=== PATIENT | female | born 1935 | race Caucasian/White ===

== ENCOUNTER → 2016-03-28 | Outpatient (CLI) | payer OTHER ==
--- NOTE | 2016-03-28 18:12 | DX ---
DEXA Bone Mineral Densitometry Clinical Indications: Postmenopausal, post hysterectomy, loss of height, history of steroid use for 2 years, osteoporosis medication , follow-up osteoporosis Comparison: December 12, 2013 Technique: Bone Mineral Densitometry (BMD) by Dual Energy X-Ray Absorptiometry (DEXA) was performed utilizing the Sassor scanner. The lumbar spine was evaluated in the AP projection. The bilat eral hips and forearm were evaluated in the AP projection. Vertebral fracture assessment was also pe rformed. AP Lumbar Spine: The L1, L2, L3 and L4 vertebral bodies were evaluated. BMD: 0.906 gm/cm2 T-score: -2.3 SD Z-score: -0.2 SD Significantly increased by 8.9% AP Left Hip: Neck BMD: 0.794 gm/cm2 T-score: -1.8 SD Z-score: 0.6 SD No significant change in total BMD AP Right Hip: Neck BMD: 0.796 gm/cm2 T-score: -1.7 SD Z-score: 0.6 SD Total BMD is significantly increased by 5.8% AP Left Forearm, 03/07: BMD: 0.593 gm/cm2 T-score: -3.2 SD Z-score: -0.6 SD Significantly increased by 8.6% Vertebral Fracture Assessment: No significant fracture deformity. Atherosclerotic calcification of t he abdominal aorta likely increases lumbar BMD. Conclusion: Considering the lowest measured site, the patient remains osteoporotic and at increased risk for fracture. Since the forearm is the lowest measured site, it would be worthwhile to exclude h yperparathyroidism. Therapeutic intervention should be continued as clinically directed.. The ten year FRAX risk for any major osteoporotic fracture , which excludes the risk for a wrist frac ture, is 13.6% and for a hip fracture is 3.7%. To promote the patient's bone density, the following recommendations should be considered: 1. Pursue a regular regimen of weightbearing and muscle strengthening exercises in order to reduce t he risk of falls and fractures (as tolerated by the patient's general medical condition). 2. Ensure that daily dietary calcium uptake is maximized. 3. Consider checking the serum vitamin D level. Ensure that intake of vitamin D is 800 IU per day (f or ages 71 and older). 4. Consider follow-up DEXA scan in two years to assess the rate of bone loss in this patient.
== END ==
LOC: FIMAGING 10:15
PROVIDERS: ATTEND Internal Medicine
DX: M81.0 Age-related osteoporosis without current pathological fracture (principal); Z92.241 Personal history of systemic steroid therapy

== ENCOUNTER → 2016-05-16 | Outpatient (CLI) | payer OTHER | LOC: FIMAGING 10:11 | PROVIDERS: ATTEND Internal Medicine | DX: M47.892 Other spondylosis, cervical region (principal); M43.12 Spondylolisthesis, cervical region; M25.78 Osteophyte, vertebrae ==

== ENCOUNTER 2016-06-13 09:32 | Day surgery (SDC) | payer OTHER ==
[2016-06-13] MEDS ORDERED: LR 1,000 ML IV ONE ×2 (09:44→10:37)
[2016-06-13] MEDS ORDERED: PROPOFOL/EMULSION 500 MG/50 ML BOTTLE IV ONE (11:05)
--- NOTE | 2016-06-13 11:53 | GPN ---
[f rep st] PROCEDURE NOTE PREPROCEDURE DIAGNOSIS: Dysphagia. POSTPROCEDURE DIAGNOSIS: Mild stomach gastritis. PROCEDURE: Esophagogastroduodenoscopy with biopsies. ANESTHESIA: Monitored anesthesia care. INDICATIONS: The patient is a 80-year-old female with a history of stroke, on Eliquis, which was stopped 2 days ago, here for dysphagia. She has trouble initiating the swallow with liquids and solids and often feels like food and liquid goes down the wrong tube, causing coughing and choking. Her symptoms are worse after her stroke. She is here for upper endoscopy. The risks and the benefits of the procedure were discussed with the patient. Consent obtained. Risks include, but not limited to, bleeding, perforation, associated with sedation. The patient is ASA class 3. DESCRIPTION OF PROCEDURE: The end-viewing endoscope was inserted into the esophagus, into the stomach, and the second portion of duodenum. The esophagus is normal. There were no strictures. The GE junction is normal and located at 42 cm from the incisors. There was no evidence of Glez's esophagitis or varices. The stomach shows mild antral gastritis seen, erythema along the greater curvature. Biopsies were taken to evaluate for Helicobacter pylori. The duodenum and second portion were normal. Biopsies were taken of the stomach using cold biopsy forceps. IMPRESSION: 1. Normal esophagus. Normal exam for dysphagia. 2. Mild gastritis status post biopsies using cold biopsy forceps. RECOMMENDATIONS: 1. Discharged home with escort. 2. Advance diet as tolerated. 3. Follow up final pathology results, should be available within 10 days. 4. Consider speech therapy consultation and video fluoroscopic swallow study given her history of stroke and likely oropharyngeal dysphagia in the setting of normal endoscopy. Thank you for allowing me to participate in the care of your patient, please do not hesitate to call with questions. /[id number]/MODL MTDD
== END 2016-06-13 12:42 | disposition home or self-care (01) ==
LOC: FSGY 12:42
PROVIDERS: ATTEND Internal Medicine Gastroenterology
PROC: 0DB68ZX Excision of Stomach, Via Natural or Artificial Opening Endoscopic, Diagnostic (ICD-10-PCS; principal; 2016-06-13 11:00)
DX: R13.10 Dysphagia, unspecified (principal); K29.50 Unspecified chronic gastritis without bleeding; G47.33 Obstructive sleep apnea (adult) (pediatric); I69.351 Hemiplegia and hemiparesis following cerebral infarction affecting right dominant side; J44.9 Chronic obstructive pulmonary disease, unspecified
CPT/HCPCS: J2704

== ENCOUNTER → 2017-01-09 | Outpatient (CLI) | payer OTHER | LOC: FIMAGING 10:48 → EDBD 10:48 | PROVIDERS: ATTEND Internal Medicine | DX: Z12.31 Encounter for screening mammogram for malignant neoplasm of breast (principal) | CPT/HCPCS: G0202 ==

== ENCOUNTER → 2017-05-01 | Outpatient (CLI) | payer OTHER ==
[~2017-05-01] MED LIST: LIDOCAINE 1% 300 MG/30 ML SDV ONE
== END ==
LOC: FIMAGING 12:32
PROVIDERS: ATTEND Internal Medicine
PROC: 0G9K3ZX Drainage of Thyroid Gland, Percutaneous Approach, Diagnostic (ICD-10-PCS; principal; 2017-05-01)
DX: E04.1 Nontoxic single thyroid nodule (principal)

== ENCOUNTER → 2018-02-19 | Outpatient (CLI) | payer OTHER | END | disposition home or self-care (01) | LOC: FIMAGING 10:09 | PROVIDERS: ATTEND Internal Medicine | DX: Z12.31 Encounter for screening mammogram for malignant neoplasm of breast (principal) ==